=== PATIENT | male | born 1970 | race Caucasian/White ===

== ENCOUNTER → 2017-09-30 | Outpatient (CLI) | payer BC ==
[~2017-09-30] VITALS: Ht 177.8 cm; Wt 117.5 kg
[~2017-09-30] MED LIST: ALLOPURINOL300 MG PO; AMBIEN 5MG TABLE5 MG PO; ASPIRIN 81M81 MG/TA2 PO; BRINTELLIX5 PO; CANA300T PO; COLACE100 MG PO; DIABETA 2.5MG2.5 MG PO; DIABETA1.25 MG PO; FISH OIL1 IU PO; IRON; LEXAPRO 10MG10 MG PO; LISINOPRIL; MULTI VITAMINS1 TAB PO; NOVOLOG 100U100 U/M1 SQ; PLAVIX 75MG TAB75 MG PO; PRINZIDE 12.5 M1 TAB PO; TRESIBA FL200 UNIT/1 SQ; TRICOR 48MG48 MG PO; ZOCOR 40MG40 MG PO; ZOCOR5 MG PO; ZYLOPRIM 100MG100 MG PO
[2017-09-30 10:42] VITALS: BP 121/82; PULSE 78
[2017-09-30 11:59] VITALS: BP 110/72; PULSE 110
[2017-09-30 12:01] VITALS: BP 120/76; PULSE 102
[2017-09-30 12:04] VITALS: BP 142/84; PULSE 86
== END ==
LOC: COL.CARD 10:16
DX: R07.9 Chest pain, unspecified (principal); E11.9 Type 2 diabetes mellitus without complications; E78.00 Pure hypercholesterolemia, unspecified
CPT/HCPCS: A9502; J2785

== ENCOUNTER 2017-10-08 14:07 | Emergency (ER) | payer BC ==
[~2017-10-08] VITALS: Ht 177.8 cm; Wt 115.0 kg
[2017-10-08 14:49] LABS: BASO # 0.1 (0.0-0.2); BASO % 0.8 % (0.0-2.0); EOS # 0.1 (0.0-0.7); EOS % 1.1 % (0-4.0); GRAN # 8.9 (1.4-6.5); GRAN % 73.8 % (42.2-75.2); HEMATOCRIT 48.5 % (42.0-52.0); HEMOGLOBIN 16.7 g/dl (13.5-18.0); LYMPH # 2.2 (1.2-3.4); LYMPH % 18.3 % (20.0-51.0); MEAN CELL VOLUME 87 fl (80.0-100.0); MEAN CORPUSCULAR HEMOGLOBIN 30 pg (27.0-31.0); MEAN CORPUSCULAR HGB CONC 34 g/dl (33.0-37.0); MEAN PLATELET VOLUME 11.3 fl (7.4-10.4); MONO # 0.6 (0.1-0.6); MONO % 5.3 % (1.7-9.3); PLATELET COUNT 240 K/mm3 (130-400); RED BLOOD COUNT 5.55 M/mm3 (4.20-5.60); REDCELL DISTRIBUTION WIDTH-CV 13.6 % (11.5-14.5)
[2017-10-08 14:53] LABS: INR 1.2 (0.8-3.0)
[2017-10-08 14:56] LABS: PARTIAL THROMBOPLASTIN TIME 32.8 SECONDS (26.0-37.0)
[2017-10-08 14:58] LABS: ALANINE AMINOTRANSFERASE 40 U/L (21-72); ALBUMIN 4.7 gm/dL (3.5-5.0); ALKALINE PHOSPHATASE 70 U/L (50-136); ANION GAP 15 mmol/L (7-16); AST,SGOT 34 U/L (15-37); BILIRUBIN,TOTAL 0.8 mg/dL (0.0-1.0); BLOOD UREA NITROGEN 58 mg/dL (9-20); CARBON DIOXIDE 17 mmol/L (22-30); CHLORIDE 105 mmol/L (98-107); CREATININE, serum 1.54 mg/dL (0.66-1.25); GLUCOSE 279 mg/dL (74-106); LIPASE 411 U/L (23-300); POTASSIUM 5.1 mmol/L (3.4-5.0); SODIUM 136 mmol/L (137-145); TOTAL PROTEIN 8.2 gm/dL (6.4-8.2)
[2017-10-08 15:14] LABS: TROPONIN-I < 0.012 ng/mL (0.000-0.034)
[2017-10-08] MEDS ORDERED: PRINZIDE 12.5 M1 TA1 PO (15:41)
[2017-10-08] MEDS ORDERED: NITROSTAT0.4 MG/TAB SL (15:44)
[2017-10-08] MEDS ORDERED: NORCO 325 MG-51 TAB PO (15:46)
[2017-10-08] MEDS ORDERED: TOPROL XL 25MG25 MG PO (15:47)
[2017-10-08 16:13] VITALS: TEMP 96.2
[2017-10-08 16:22] LABS: ACETONE,SERUM NEGATIVE
[2017-10-08 17:53] VITALS: BP 99/64; PULSE 112
== END 2017-10-08 17:52 | disposition other institution (70) ==
LOC: COL.ER 14:07
PROVIDERS: Emergency Medicine
DX: K74.60 Unspecified cirrhosis of liver (principal); K92.2 Gastrointestinal hemorrhage, unspecified; E11.9 Type 2 diabetes mellitus without complications; E78.5 Hyperlipidemia, unspecified; I10 Essential (primary) hypertension; Z79.82 Long term (current) use of aspirin; Z79.4 Long term (current) use of insulin
CPT/HCPCS: C9113; J2354; J2405; J7030; J7040

== ENCOUNTER 2017-12-26 10:04 | Day surgery (SDC) | payer BC ==
[2017-12-26] VITALS (10 sets, daily range): BP systolic 110–137; BP diastolic 52–80; PULSE 58–98; TEMP 98.1
[~2017-12-26] VITALS: Ht 177.8 cm; Wt 117.8 kg
[~2017-12-26 10:04] MED LIST changes: +NITROSTAT0.4 MG/TAB SL; +NORCO 325 MG-51 TAB PO; +PRINZIDE 12.5 M1 TA1 PO; +TOPROL XL 25MG25 MG PO
[2017-12-26 10:36] LABS: HEMATOCRIT 48.7 % (42.0-52.0); HEMOGLOBIN 17.3 g/dl (13.5-18.0); MEAN CELL VOLUME 85 fl (80.0-100.0); MEAN CORPUSCULAR HEMOGLOBIN 30 pg (27.0-31.0); MEAN CORPUSCULAR HGB CONC 36 g/dl (33.0-37.0); PLATELET COUNT 196 K/mm3 (130-400); RED BLOOD COUNT 5.73 M/mm3 (4.20-5.60); REDCELL DISTRIBUTION WIDTH-CV 13.6 % (11.5-14.5)
[2017-12-26 10:37] LABS: INR 1.1 (0.8-3.0); PROTHROMBIN TIME 12.9 SECONDS (9.7-12.8)
[2017-12-26] MEDS ORDERED: BIAXIN 500MG T500 MG PO (10:40)
[2017-12-26] MEDS ORDERED: AMOXICILLIN 25250 MG PO (10:40)
[2017-12-26 10:41] LABS: CALCIUM 9.7 mg/dL (8.4-10.2); CREATININE, serum 1.41 mg/dL (0.66-1.25)
[2017-12-26] MEDS ORDERED: TRESIBA FL100 UNIT/1 SQ (10:41)
[2017-12-26] MEDS ORDERED: BRINTELLIX5 PO (10:42)
[2017-12-26] MEDS ORDERED: ANTIVERT 25MG25 MG PO (10:42)
[2017-12-26] MEDS ORDERED: ASPIRIN E.C. 8181 MG PO (14:41)
[2017-12-26] MEDS ORDERED: NITRO-DUR0.1 MG/PAT TD (14:43)
[2017-12-26] MEDS ORDERED: TOPROL XL 50MG50 MG PO (14:44)
== END 2017-12-26 17:18 | disposition home or self-care (01) ==
LOC: COL.CAR 10:04
PROVIDERS: Internal Medicine Cardiovascular Disease
DX: I25.10 Atherosclerotic heart disease of native coronary artery without angina pectoris (principal); E11.9 Type 2 diabetes mellitus without complications; Z79.84 Long term (current) use of oral hypoglycemic drugs; Z82.49 Family history of ischemic heart disease and other diseases of the circulatory system; Z79.82 Long term (current) use of aspirin; Z79.01 Long term (current) use of anticoagulants; Z80.9 Family history of malignant neoplasm, unspecified; E78.5 Hyperlipidemia, unspecified; F17.220 Nicotine dependence, chewing tobacco, uncomplicated; Z83.3 Family history of diabetes mellitus
CPT/HCPCS: J2250; J3010; Q9967

== ENCOUNTER 2018-03-31 14:05 | Outpatient (RCR) | payer BC ==
[~2018-03-31 14:05] MED LIST changes: +AMOXICILLIN 25250 MG PO; +ANTIVERT 25MG25 MG PO; +ASPIRIN E.C. 8181 MG PO; +BIAXIN 500MG T500 MG PO; +NITRO-DUR0.1 MG/PAT TD; +TOPROL XL 50MG50 MG PO; +TRESIBA FL100 UNIT/1 SQ
== END 2018-04-05 05:42 | disposition home or self-care (01) ==
LOC: COL.CR 14:05
DX: Z48.812 Encounter for surgical aftercare following surgery on the circulatory system (principal); Z95.1 Presence of aortocoronary bypass graft; I25.10 Atherosclerotic heart disease of native coronary artery without angina pectoris

== ENCOUNTER 2019-01-01 06:46 | Emergency (ER) | payer BC ==
[~2019-01-01] VITALS: Ht 177.8 cm; Wt 118.2 kg
[2019-01-01 06:52] VITALS: TEMP 97.6
[2019-01-01 07:11] LABS: BASO # 0.1 (0.0-0.2); BASO % 0.6 % (0.0-2.0); GRAN # 11.2 (1.4-6.5); GRAN % 82.4 % (42.2-75.2); HEMATOCRIT 57.1 % (42.0-52.0); HEMOGLOBIN 19.4 g/dl (13.5-18.0); LYMPH # 1.6 (1.2-3.4); LYMPH % 11.8 % (20.0-51.0); MEAN CELL VOLUME 87 fl (80.0-100.0); MEAN CORPUSCULAR HEMOGLOBIN 29 pg (27.0-31.0); MEAN CORPUSCULAR HGB CONC 34 g/dl (33.0-37.0); MEAN PLATELET VOLUME 11.1 fl (7.4-10.4); MONO # 0.6 (0.1-0.6); MONO % 4.2 % (1.7-9.3); PLATELET COUNT 233 K/mm3 (130-400); REDCELL DISTRIBUTION WIDTH-CV 16.4 % (11.5-14.5)
[2019-01-01 07:19] LABS: ALBUMIN 4.6 gm/dL (3.5-5.0)
[2019-01-01 07:20] LABS: ALANINE AMINOTRANSFERASE 19 U/L (21-72); ALKALINE PHOSPHATASE 135 U/L (50-136); ANION GAP 28 mmol/L (7-16); AST,SGOT 27 U/L (15-37); BILIRUBIN,TOTAL 1.2 mg/dL (0.0-1.0); BLOOD UREA NITROGEN 36 mg/dL (9-20); CALCIUM 9.9 mg/dL (8.4-10.2); CHLORIDE 102 mmol/L (98-107); CREATININE, serum 1.46 (0.66-1.25); LIPASE 106 U/L (23-300); POTASSIUM 4.5 mmol/L (3.4-5.0); SODIUM 142 mmol/L (137-145); TOTAL PROTEIN 8.9 gm/dL (6.4-8.2)
[2019-01-01] MEDS ORDERED: REGLAN 10MG10 MG/TAB PO (07:20)
[2019-01-01] MEDS ORDERED: TOPROL XL 25MG25 MG PO (07:21)
[2019-01-01] MEDS ORDERED: TRICOR145 MG PO (07:21)
[2019-01-01] MEDS ORDERED: PHENERGAN 25 TA25 MG PO (07:22)
[2019-01-01] MEDS ORDERED: BRINTELLIX10 (07:22)
[2019-01-01 07:24] LABS: CARBON DIOXIDE 12 mmol/L (22-30); GLUCOSE 480 mg/dL (74-106)
[2019-01-01] MEDS ORDERED: CANA300T PO (07:27)
[2019-01-01] MEDS ORDERED: ASPIRIN 81M81 MG/TA2 PO (07:27)
[2019-01-01] MEDS ORDERED: ZOCOR 40MG40 MG PO (07:28)
[2019-01-01] MEDS ORDERED: ZYLOPRIM 300MG300 MG PO (07:28)
[2019-01-01] MEDS ORDERED: MULTIPLE VITAMI1 TA5 PO (07:28)
[2019-01-01] MEDS ORDERED: TRESIBA FL200 UNIT/1 SQ (07:29)
[2019-01-01] MEDS ORDERED: NORCO 325 MG-7.1 TAB PO (07:30)
[2019-01-01] MEDS ORDERED: NOVOLOG FLEX100 U/ML SQ (07:31)
[2019-01-01] MEDS ORDERED: NITROSTAT0.4 MG/TAB SL (07:32)
[2019-01-01] MEDS ORDERED: AMBIEN 10MG10 MG PO (07:32)
[2019-01-01] MEDS ORDERED: ZOFRAN8 MG PO (07:33)
[2019-01-01] MEDS ORDERED: ZANTAC 150MG T150 MG PO (07:35)
[2019-01-01 07:41] LABS: TROPONIN-I < 0.012 ng/mL (0.000-0.035)
[2019-01-01 10:20] LABS: COLLECTION METHOD CLEAN CATCH
[2019-01-01 10:27] LABS: MUCOUS Present /lpf; PH 5 (5-8); SQUAMOUS EPITHELIAL None Seen /hpf; URINE APPEARANCE Clear; URINE BACTERIA None Seen /hpf; URINE BILIRUBIN Negative (NEGATIVE); URINE BLOOD Negative (NEGATIVE); URINE COLOR Yellow; URINE GLUCOSE 3+ (NEGATIVE); URINE KETONE 2+ (NEGATIVE); URINE LEUKOCYTE ESTERASE Negative (NEGATIVE); URINE NITRATE Negative (NEGATIVE); URINE PROTEIN(semi-quant) 2+ (NEGATIVE); URINE RBC 0-2 /hpf; URINE UROBILINOGEN Negative (NEGATIVE)
[2019-01-01 11:13] LABS: CALCIUM 9.2 mg/dL (8.4-10.2); CREATININE, serum 1.22 (0.66-1.25); POTASSIUM 4.1 mmol/L (3.4-5.0)
[2019-01-01 11:46] VITALS: BP 117/89; PULSE 121
== END 2019-01-01 12:01 | disposition home or self-care (01) ==
LOC: COL.ER 06:46 → ICU 08:03 → COL.ER 12:01
PROVIDERS: Emergency Medicine
DX: E11.22 Type 2 diabetes mellitus with diabetic chronic kidney disease (principal); E11.10 Type 2 diabetes mellitus with ketoacidosis without coma; I25.10 Atherosclerotic heart disease of native coronary artery without angina pectoris; N18.9 Chronic kidney disease, unspecified; Z95.1 Presence of aortocoronary bypass graft; Z79.82 Long term (current) use of aspirin; Z79.4 Long term (current) use of insulin
CPT/HCPCS: J1815; J2765; J3480; J7030; J7040

== ENCOUNTER 2022-12-22 13:30 | Outpatient (RCR) | payer BC ==
[~2022-12-22 13:30] MED LIST changes: +AMBIEN 10MG10 MG PO; +BRINTELLIX10; +MULTIPLE VITAMI1 TA5 PO; +NORCO 325 MG-7.1 TAB PO; +NOVOLOG FLEX100 U/ML SQ; +PHENERGAN 25 TA25 MG PO; +REGLAN 10MG10 MG/TAB PO; +TRICOR145 MG PO; +ZANTAC 150MG T150 MG PO; +ZOFRAN8 MG PO; +ZYLOPRIM 300MG300 MG PO
== END 2022-12-24 | disposition home or self-care (01) ==
LOC: WSOT
DX: S62.366D Nondisplaced fracture of neck of fifth metacarpal bone, right hand, subsequent encounter for fracture with routine healing (principal); X58.XXXD Exposure to other specified factors, subsequent encounter

== ENCOUNTER 2023-11-14 12:45 | Emergency (ER) | payer OTHER ==
[~2023-11-14] VITALS: Ht 167.6 cm; Wt 100.0 kg
[~2023-11-14 12:45] MED LIST changes: +PREDNISONE20 MG PO; +VALTREX1 GM PO
[2023-11-14 12:48] VITALS: TEMP 97.6
[2023-11-14] MEDS ORDERED: PREDNISONE20 MG PO (14:32)
[2023-11-14 15:24] VITALS: BP 139/96; PULSE 78
== END 2023-11-14 15:25 | disposition home or self-care (01) ==
LOC: COL.ER 12:45
DX: G51.0 Bell's palsy (principal)

== ENCOUNTER 2024-04-26 16:27 | Observation (INO) | payer OTHER ==
[~2024-04-26] VITALS: Ht 172.7 cm; Wt 104.1 kg
[2024-04-26 17:00] LABS: MEAN CELL VOLUME 87 fl (80.0-100.0); MEAN CORPUSCULAR HGB CONC 34 g/dl (33.0-37.0); MEAN PLATELET VOLUME 10.6 fl (7.4-10.4); PLATELET COUNT 123 K/mm3 (130-400); RED BLOOD COUNT 6.31 M/mm3 (4.20-5.60); REDCELL DISTRIBUTION WIDTH-CV 13.8 % (11.5-14.5)
[2024-04-26 17:03] LABS: HEMATOCRIT 54.9 % (42.0-52.0); HEMOGLOBIN 18.6 g/dl (13.5-18.0); MEAN CORPUSCULAR HEMOGLOBIN 29 pg (27-31)
[2024-04-26 17:08] LABS: INR 1.1 (0.8-3.0)
[2024-04-26 17:19] LABS: ALANINE AMINOTRANSFERASE 31 U/L (0-55); ALBUMIN 3.2 g/dL (3.5-5.0); ALKALINE PHOSPHATASE 130 U/L (40-150); ANION GAP 17 mmol/L (7-16); AST,SGOT 40 U/L (5-34); BLOOD UREA NITROGEN 22 mg/dL (8-26); CALCIUM 9.7 mg/dL (8.4-10.2); CHLORIDE 100 mEq/L (98-107); CREATININE, serum 1.18 mg/dL (0.72-1.25); POTASSIUM 4.6 mEq/L (3.5-4.5); SODIUM 133 mEq/L (136-145); TOTAL PROTEIN 7.7 g/dl (6.2-8.1)
[2024-04-26 17:20] LABS: GLUCOSE 443 mg/dL (70-99)
[2024-04-26 17:29] LABS: TROPONIN-I < 0.010 ng/mL (0.00-0.033)
[2024-04-26] MEDS ORDERED: Insulin Regular Human (NovoLIN R/HumuLIN R) IV ONE (19:00)
[2024-04-26] MEDS ORDERED: NS 1,000 ML IV ONE (19:00)
[2024-04-26 19:03] LABS: ANISOCYTOSIS 1+; BAND 8 % (0-10); LYMPHOCYTE 63 % (20.0-51.0); NEUTROPHILS 24 % (42.0-75.2); POLYCHROMASIA 1+
[2024-04-26 19:04] LABS: PLATELET ESTIMATE DECREASED (NORMAL)
[2024-04-26] MEDS ORDERED: Ondansetron 4 MG/2 ML VIAL IV PRN (20:15)
[2024-04-26] MEDS ORDERED: NS 1,000 ML IV SCH (20:15)
[2024-04-26] MEDS ORDERED: Magnes Hydrox (MOM) 80 MG/ML 30 ML CUP PO PRN (20:15)
[2024-04-26] MEDS ORDERED: Mag/Al Hydrox/Simeth Susp 30 ML CUP PO PRN (20:15)
[2024-04-26] MEDS ORDERED: Insulin Lispro (HumaLOG) SQ SCH (20:17)
[2024-04-26 20:20] LABS: COLLECTION METHOD CLEAN CATCH
[2024-04-26 20:29] LABS: URINE APPEARANCE CLEAR (CLEAR/HAZY); URINE BLOOD 1+ (NEGATIVE); URINE COLOR YELLOW (YELLOW); URINE GLUCOSE 3+ (NEGATIVE); URINE KETONE 1+ (NEGATIVE); URINE NITRATE NEGATIVE (NEGATIVE); URINE PROTEIN(semi-quant) 2+ (NEGATIVE)
[2024-04-26] MEDS ORDERED: Famotidine 20 MG TAB PO SCH (21:00)
[2024-04-26] MEDS ORDERED: Atorvastatin 40 MG TAB PO SCH (21:00)
[2024-04-26] MEDS ORDERED: Glucagon 1 MG VIAL IM PRN (21:00)
[2024-04-26] MEDS ORDERED: Dextrose 50% Water 25 GM/50 ML SYRINGE IV PRN (21:00)
[2024-04-26] MEDS ORDERED: Melatonin 3 MG TAB PO PRN (21:00)
[2024-04-26] MEDS ORDERED: Dextrose (Glucose) 15 GM (4 x 3.75 GM) Chewable TABLET PACK PO PRN (21:00)
[2024-04-26] MEDS ORDERED: Docusate Sodium 100 MG CAP PO SCH (21:00)
[2024-04-26 21:10] VITALS: BP_SYST 156
[2024-04-26 21:23] VITALS: BP 156/94; PULSE 87; TEMP 97.6
[2024-04-26 21:36] LABS: ANION GAP 15 mmol/L (7-16); BLOOD UREA NITROGEN 20 mg/dL (8-26); CALCIUM 9.3 mg/dL (8.4-10.2); CHLORIDE 103 mEq/L (98-107); CREATININE, serum 1.01 mg/dL (0.72-1.25); GLUCOSE 281 mg/dL (70-99); POTASSIUM 4.3 mEq/L (3.5-4.5); SODIUM 138 mEq/L (136-145)
[2024-04-26] MEDS ORDERED: HUMALOG PEN100 U/ML SQ (21:39)
[2024-04-26 21:46] LABS: MAGNESIUM 1.8 mg/dL (1.6-2.6)
[2024-04-26] MEDS ORDERED: GLUCOTROL10 MG PO (21:47)
[2024-04-26] MEDS ORDERED: VASCEPA1 GM PO (21:48)
[2024-04-26] MEDS ORDERED: FARXIGA10 PO (21:49)
[2024-04-26] MEDS ORDERED: COLACE 100100 MG/CAP PO (21:51)
[2024-04-26] MEDS ORDERED: Enoxaparin 120 MG/0.8 ML SYRINGE SQ ONE (23:00)
[2024-04-26] MEDS ORDERED: Clopidogrel 300 MG DOSE (75 mg x 4 tabs) PO ONE (23:00)
[2024-04-26] MEDS ORDERED: Allopurinol 300 MG TAB PO SCH (23:41)
[2024-04-26] MEDS ORDERED: Dapagliflozin 10 MG **** subs to Empagliflozin 10 MG PO SCH (23:42)
[2024-04-26] MEDS ORDERED: HYDROcodone/Acetaminophen 7.5-325 MG TAB PO PRN (23:45)
[2024-04-27] VITALS (20 sets, daily range): BP systolic 106–150; BP diastolic 64–85; PULSE 76–94; TEMP 98.1–98.5
[2024-04-27] MEDS ORDERED: Metoclopramide 10 MG TAB PO SCH (00:30)
[2024-04-27] MEDS ORDERED: Zolpidem 10 MG TAB PO PRN (00:30)
[2024-04-27] MEDS ORDERED: Insulin Glargine-ygfn (Lantus) SQ SCH (00:30)
[2024-04-27] MEDS ORDERED: Empagliflozin 10 MG TAB PO SCH (00:30)
[2024-04-27 06:49] LABS: CHOLESTEROL 200 mg/dL (0-199); CHOLESTEROL RISK RATIO 14.2; HDL CHOLESTEROL 14 mg/dL (40-60); LDL CHOLESTEROL 24 mg/dL
[2024-04-27 06:55] LABS: TROPONIN-I < 0.010 ng/mL (0.00-0.033)
[2024-04-27] MEDS ORDERED: Midazolam 2 MG/2 ML VIAL IV SCH (11:32)
[2024-04-27] MEDS ORDERED: fentaNYL 50 MCG/ML 2 ML VIAL IV SCH (11:38)
[2024-04-27] MEDS ORDERED: Iohexol 350 - 100 ML VIAL INCOR ONE (11:39)
[2024-04-27] MEDS ORDERED: 1/2 NS 1,000 ML IV SCH (12:00)
[2024-04-27] MEDS ORDERED: Isosorbide Mononitrate CR (24-HR) 60 MG TAB PO SCH (12:00)
[2024-04-27] MEDS ORDERED: Ranolazine ER 500 MG TAB PO SCH (12:00)
[2024-04-27] MEDS ORDERED: Clopidogrel 75 MG TAB PO SCH (12:00)
[2024-04-27] MEDS ORDERED: RANEXA 500MG T500 MG PO (17:13)
[2024-04-27] MEDS ORDERED: PLAVIX 75MG TAB75 MG PO (17:13)
[2024-04-27] MEDS ORDERED: LIPITOR 80MG80 MG PO (17:13)
[2024-04-27] MEDS ORDERED: IMDUR 60MG60 MG/TAB PO (17:14)
[2024-04-27] MEDS ORDERED: ASPIRIN E.C. 8181 MG PO (17:14)
[2024-04-27] MEDS ORDERED: Atorvastatin 80 MG TAB PO SCH (21:00)
== END 2024-04-27 19:30 | disposition home or self-care (01) ==
LOC: COL.ER 16:27 → MEDICAL 18:30
PROVIDERS: Emergency Medicine; Nurse Practitioner Family; ADMIT Internal Medicine
DX: I25.719 Atherosclerosis of autologous vein coronary artery bypass graft(s) with unspecified angina pectoris (principal); I25.110 Atherosclerotic heart disease of native coronary artery with unstable angina pectoris; E78.5 Hyperlipidemia, unspecified; F32.A Depression, unspecified; Z95.1 Presence of aortocoronary bypass graft; D75.1 Secondary polycythemia; D69.6 Thrombocytopenia, unspecified; E11.10 Type 2 diabetes mellitus with ketoacidosis without coma; E87.6 Hypokalemia; E83.52 Hypercalcemia; M10.9 Gout, unspecified; G47.00 Insomnia, unspecified; K75.81 Nonalcoholic steatohepatitis (NASH); G89.29 Other chronic pain; Z79.4 Long term (current) use of insulin; Z79.899 Other long term (current) drug therapy; G51.0 Bell's palsy; E11.22 Type 2 diabetes mellitus with diabetic chronic kidney disease; E11.65 Type 2 diabetes mellitus with hyperglycemia; I12.9 Hypertensive chronic kidney disease with stage 1 through stage 4 chronic kidney disease, or unspecified chronic kidney disease; N18.9 Chronic kidney disease, unspecified
CPT/HCPCS: A9270; G0378; J1644; J1650; J1815; J2250; J2405; J3010; J7030; Q9967